=== PATIENT | female | born 1940 | race Caucasian/White ===

== ENCOUNTER → 2019-01-22 | Outpatient (CLI) | payer BC ==
[~2019-01-22] MED LIST: ACET325 PO; ASPI81CH PO; ATOR10 PO; ATOR80 PO; Bactrim 400-801 EACH PO; CARV3.125 PO; CARV6.25 PO; CLOP75 PO; DOCU100 PO; GLIP5 PO; GLIP5ER PO; Glucophage1000 MG PO; LOSA25 PO; LOSA50 PO; Lisinopril2.5 MG PO; METF500 PO; OMEPRAZOLE MAGN20 MG; ONDA4 PO; Omeprazole20 M1 PO; PARO20 PO; PAXIL40 MG PO; Paxil40 MG PO; SPIR25 PO; Senna8.6 MG PO
== END | disposition home or self-care (01) ==
LOC: LAB 16:26 → LAB SHORT 16:26
DX: N89.8 Other specified noninflammatory disorders of vagina (principal)
CPT/HCPCS: 87070; 87205

== ENCOUNTER → 2019-01-29 | Outpatient (CLI) | payer BC ==
[2019-01-29 15:18] LABS: Bilirubin, Urine Neg (Neg); Blood, Urine Neg (Neg); Glucose Qualitative, Urine Neg (Neg); Ketones, Urine Neg (Neg); Leukocyte Esterase, Urine 1+ (Neg); Nitrite, Urine Neg (Neg); Protein, Urine Neg (Neg); Urobilinogen, Urine NORM (Normal)
[2019-01-29 15:28] LABS: Appearance, Urine Hazy (Clear); Color, Urine Yellow (P-Yellow)
[2019-01-29 15:29] LABS: Red Blood Cells, Urine 0-2 /hpf (0-2); Squamous Epithelial Cells Few /hpf (Few)
[2019-01-29 15:30] LABS: Bacteria Few /hpf
== END | disposition home or self-care (01) ==
LOC: LAB SHORT 13:10 → LAB 13:10
PROVIDERS: Internal Medicine
DX: N39.0 Urinary tract infection, site not specified (principal)
CPT/HCPCS: 81001; 87086

== ENCOUNTER 2019-08-06 09:14 | Day surgery (SDC) | payer BC ==
[~2019-08-06 09:14] MED LIST changes: +COLACE CLEAR50 MG PO; +CYAN1000I IM; +Estrace Vagin42.5 GM; +Lipitor80 MG PO; +OMEPRAZOLE20 MG PO; +Senna S Tablet1 EACH PO
--- NOTE | 2019-08-06 10:47 | NUR ---
08/06/19 1047 Edward Cesar REACHED CECUM. COLONOSCOPY INCOMPLETE D/T POOR PREP.
[2019-08-14] MEDS ORDERED: Aspir 8181 MG PO (08:19)
[2019-08-14] MEDS ORDERED: LOSARTAN POTASS25 MG PO (08:20)
[2019-08-14] MEDS ORDERED: GLIP5 PO (08:34)
== END 2019-08-06 11:50 | disposition home or self-care (01) ==
LOC: ORSCSDS 09:14
PROVIDERS: Internal Medicine Gastroenterology
PROC: 0DBL8ZX Excision of Transverse Colon, Via Natural or Artificial Opening Endoscopic, Diagnostic (ICD-10-PCS; principal; 2019-08-06 10:15)
DX: R19.7 Diarrhea, unspecified (principal); R10.32 Left lower quadrant pain; D12.3 Benign neoplasm of transverse colon; K57.30 Diverticulosis of large intestine without perforation or abscess without bleeding; K64.8 Other hemorrhoids; I25.2 Old myocardial infarction; Z79.01 Long term (current) use of anticoagulants; K21.9 Gastro-esophageal reflux disease without esophagitis; E11.9 Type 2 diabetes mellitus without complications; Z79.899 Other long term (current) drug therapy
CPT/HCPCS: 82947; 88305; J2704; J7120

== ENCOUNTER → 2019-08-09 | Outpatient (CLI) | payer BC ==
[~2019-08-09] MED LIST changes: +Aspir 8181 MG PO; +LOSARTAN POTASS25 MG PO
[2019-08-09 15:31] LABS: Appearance, Urine Cloudy (Clear); Bilirubin, Urine Neg (Neg); Blood, Urine 3+ (Neg); Color, Urine Yellow (P-Yellow); Glucose Qualitative, Urine 3+ (Neg); Ketones, Urine Neg (Neg); Leukocyte Esterase, Urine 3+ (Neg); Nitrite, Urine Neg (Neg); Protein, Urine 3+ (Neg); Urobilinogen, Urine NORM (Normal); pH, Urine 6.5 (5.0-8.0)
[2019-08-09 15:44] LABS: Bacteria Many /hpf; Squamous Epithelial Cells Few /hpf (Few); White Blood Cells, Urine TNTC /hpf (0-5)
== END ==
LOC: LAB SHORT 12:15 → OLS 12:15 → EDSTATUS 08-09 10:00 → LAB FUT 08-09 10:00
PROVIDERS: Internal Medicine
DX: N39.0 Urinary tract infection, site not specified (principal)
CPT/HCPCS: 81001; 87077; 87086; 87186

== ENCOUNTER 2019-08-15 00:03 | Day surgery (SDC) | payer BC | END 2019-08-15 23:57 | disposition home or self-care (01) | LOC: ATC 00:03 | DX: N39.0 Urinary tract infection, site not specified (principal); Z88.5 Allergy status to narcotic agent; Z88.8 Allergy status to other drugs, medicaments and biological substances; Z79.02 Long term (current) use of antithrombotics/antiplatelets; Z79.899 Other long term (current) drug therapy | CPT/HCPCS: 96365; J0692 ==

== ENCOUNTER 2019-08-16 00:26 | Day surgery (SDC) | payer BC | END 2019-08-16 16:56 | disposition home or self-care (01) | LOC: ATC 00:26 | DX: N39.0 Urinary tract infection, site not specified (principal); E11.9 Type 2 diabetes mellitus without complications; E78.00 Pure hypercholesterolemia, unspecified; I25.2 Old myocardial infarction; Z79.02 Long term (current) use of antithrombotics/antiplatelets; Z79.899 Other long term (current) drug therapy; Z88.5 Allergy status to narcotic agent; Z88.8 Allergy status to other drugs, medicaments and biological substances | CPT/HCPCS: 96365; J0692 ==

== ENCOUNTER 2019-08-17 07:25 | Day surgery (SDC) | payer BC | END 2019-08-17 16:26 | disposition home or self-care (01) | LOC: ATC 07:25 | DX: N39.0 Urinary tract infection, site not specified (principal); E11.9 Type 2 diabetes mellitus without complications; E78.00 Pure hypercholesterolemia, unspecified; I25.2 Old myocardial infarction; Z88.5 Allergy status to narcotic agent; Z88.8 Allergy status to other drugs, medicaments and biological substances; Z79.02 Long term (current) use of antithrombotics/antiplatelets; Z79.899 Other long term (current) drug therapy | CPT/HCPCS: 96365; J0692 ==

== ENCOUNTER 2019-08-18 00:07 | Day surgery (SDC) | payer BC | END 2019-08-18 16:42 | disposition home or self-care (01) | LOC: ATC 00:07 | DX: N39.0 Urinary tract infection, site not specified (principal); I25.2 Old myocardial infarction; E11.9 Type 2 diabetes mellitus without complications; Z88.5 Allergy status to narcotic agent; Z88.8 Allergy status to other drugs, medicaments and biological substances; Z79.899 Other long term (current) drug therapy; Z79.01 Long term (current) use of anticoagulants; Z79.84 Long term (current) use of oral hypoglycemic drugs | CPT/HCPCS: 96365; J0692 ==

== ENCOUNTER 2019-08-19 00:10 | Day surgery (SDC) | payer BC | END 2019-08-19 22:46 | disposition home or self-care (01) | LOC: ATC 00:10 | DX: N39.0 Urinary tract infection, site not specified (principal); I25.2 Old myocardial infarction; E11.9 Type 2 diabetes mellitus without complications; Z91.14 Patient's other noncompliance with medication regimen; Z88.5 Allergy status to narcotic agent; Z88.8 Allergy status to other drugs, medicaments and biological substances; Z79.899 Other long term (current) drug therapy; Z79.01 Long term (current) use of anticoagulants; Z79.84 Long term (current) use of oral hypoglycemic drugs | CPT/HCPCS: 96365; J0692 ==

== ENCOUNTER → 2019-08-24 | Outpatient (CLI) | payer BC ==
[2019-08-24 11:29] LABS: Source, Urine Clean Catch
[2019-08-24 12:01] LABS: Bilirubin, Urine Neg (Neg); Blood, Urine 4+ (Neg); Glucose Qualitative, Urine Neg (Neg); Ketones, Urine Neg (Neg); Leukocyte Esterase, Urine 1+ (Neg); Nitrite, Urine Neg (Neg); Protein, Urine 2+ (Neg); Urobilinogen, Urine NORM (Normal); pH, Urine 6.5 (5.0-8.0)
[2019-08-24 12:34] LABS: Appearance, Urine Clear (Clear); Color, Urine Yellow (P-Yellow)
[2019-08-24 12:36] LABS: Bacteria Few /hpf; Red Blood Cells, Urine 25-50 /hpf (0-2); Squamous Epithelial Cells Mod /hpf (Few)
== END | disposition home or self-care (01) ==
LOC: LAB SHORT 11:28 → OLS 11:28
PROVIDERS: Internal Medicine
DX: N39.0 Urinary tract infection, site not specified (principal)
CPT/HCPCS: 81001; 87086

== ENCOUNTER 2019-12-03 07:18 | Observation (INO) | payer BC ==
[~2019-12-03] VITALS: Ht 162.6 cm; Wt 60.8 kg
[~2019-12-03 07:18] MED LIST changes: -CYAN1000I IM; +CYAN500 IM
--- NOTE | 2019-12-03 08:17 | NUR ---
History, Chart, Medications and Allergies reviewed before start of procedure. Patient confirms NPO status and agrees with scheduled surgery. Lungs clear T/O to Auscultation. Pre-Op teaching done. Pt verbalizes understanding. Patient reports completing Chlorhexadine shower X2 prior to admission to hospital.
--- NOTE | 2019-12-03 08:43 | NUR ---
PATIENT ON MONITOR DURING PREOP WAITING PERIOD POST DEACTIVATION OF SENSING FOR ICD. NOTE ON CHART TO HAVE RE-INTEROGATED AND TURNED ON IN PACU.
--- NOTE | 2019-12-03 09:04 | NUR ---
MACHINE FASTENER REPORT COMPLETED AT BEDSIDE WITH MAGUE JETER.
--- NOTE | 2019-12-03 15:50 | NUR ---
SHIFT SUMMARY PT A&OX4, VSS, S/P SPIGELIAN HERNIA REPAIR WITH MESH, GAUZE/OPSITE CDI, ABD BINDER ON. PAIN MANAGED WITH 5 MG NORCO AND KPAD FOR COMFORT. DOMONIQUE PO REG DIET, DENIES N&V. AMB WITH SBA FWW TO BSC. VOIDING/ATTENDS ON FOR LEAKAGE. TCDB/I.S. EDU & ENC Q2H; PT DEMONSTRATED. WILL REPORT OFF TO ONCOMING RN.
--- NOTE | 2019-12-04 04:40 | NUR ---
SHIFT SUMMARY POD 1 S/P SPIGELIAN HERNIA REPAIR WITH MESH. ABD DRESSING W/ GAUZE/OPSITE C/D/I WITH NO DRAINAGE NOTED. PT IS A/0X4 WITH SOME FORGETFULLNESS, VSS. AMBULATED TO BATHROOM WITH FWW/GB/SBA SEVERAL TIMES T/O NIGHT, ATTENDS IN PLACE FOR LEAKAGE. PAIN MANAGED WITH 1 PO NORCO, HEAT, AND REPOSITIONING. IS TOLERATING REGULAR DIET, DENIES N/V. REPORTS PASSING FLATUS. CURRENTLY RESTING IN BED WITH CALL LIGHT IN REACH. WILL CONT TO MONITOR AND GIVE REPORT TO ONCOMING RN.
[2019-12-04] MEDS ORDERED: Norco 5-325 Ta1 EACH PO (14:59)
[2019-12-04 16:25] LABS: Source, Urine Clean Catch
[2019-12-04 16:32] LABS: Bilirubin, Urine Neg (Neg); Blood, Urine 2+ (Neg); Glucose Qualitative, Urine Neg (Neg); Ketones, Urine Neg (Neg); Leukocyte Esterase, Urine 3+ (Neg); Nitrite, Urine Neg (Neg); Protein, Urine Neg (Neg); Urobilinogen, Urine NORM (Normal)
--- NOTE | 2019-12-04 16:38 | NUR ---
DISCHARGE UA SENT. DISCUSSED DC INSTRUCTIONS W/ SPOUSE AND PT. ESCORTED OUT VIA W/C. PAIN WELL MANAGED AND SCRIPT SENT WITH SPOUSE.
[2019-12-04 16:41] LABS: Color, Urine Pale Yellow (P-Yellow)
[2019-12-04 16:42] LABS: Appearance, Urine Hazy (Clear)
[2019-12-04 16:44] LABS: Bacteria Mod /hpf; Squamous Epithelial Cells Few /hpf (Few); White Blood Cells, Urine 50-100 /hpf (0-5)
== END 2019-12-04 16:38 | disposition home or self-care (01) ==
LOC: ORSCMMR 07:18 → ORD 07:30 → ORSCMMR 09:00 → SURS 10:49 → ORD 11:15 → SURS 11:26
PROVIDERS: ADMIT Surgery
PROC: 0WUF0JZ Supplement Abdominal Wall with Synthetic Substitute, Open Approach (ICD-10-PCS; principal; 2019-12-03 09:00)
DX: K43.9 Ventral hernia without obstruction or gangrene (principal); I10 Essential (primary) hypertension; E11.9 Type 2 diabetes mellitus without complications; I25.5 Ischemic cardiomyopathy; I25.2 Old myocardial infarction; I25.10 Atherosclerotic heart disease of native coronary artery without angina pectoris; Z79.82 Long term (current) use of aspirin; Z79.84 Long term (current) use of oral hypoglycemic drugs; Z79.899 Other long term (current) drug therapy; Z88.5 Allergy status to narcotic agent; Z95.5 Presence of coronary angioplasty implant and graft
CPT/HCPCS: 81001; 82947; 87086; 96361; 96374; A9270; A9270-GY; C1781; G0378; J0690; J1100; J2405; J2704; J2710; J3010; J7120

== ENCOUNTER → 2020-06-18 | Outpatient (CLI) | payer BC ==
[~2020-06-18] MED LIST changes: +Norco 5-325 Ta1 EACH PO
== END | disposition home or self-care (01) ==
LOC: LAB SHORT 20:08 → LAB 20:08
DX: R30.0 Dysuria (principal)
CPT/HCPCS: 87077; 87086; 87186

== ENCOUNTER 2020-07-11 22:18 | Inpatient (IN) | payer BC, MEDICARE ==
[~2020-07-11] VITALS: Ht 162.6 cm; Wt 60.1 kg
[2020-07-11 22:55] LABS: BASOPHILS ABSOLUTE AUTO 0.06 K/mm3 (0.00-0.23); BASOPHILS PERCENT AUTO 0 % (0-2); EOSINOPHILS ABSOLUTE AUTO 0.43 K/mm3 (0.00-0.68); EOSINOPHILS PERCENT AUTO 3 % (0-6); Hematocrit 34.8 % (33.0-51.0); Hemoglobin 11.3 g/dL (11.5-16.0); IMMATURE GRAN PERCENT AUTO 1 % (0-1); LYMPHOCYTES ABSOLUTE AUTO 2.33 K/mm3 (0.84-5.20); LYMPHOCYTES PERCENT AUTO 15 % (21-46); MONOCYTES PERCENT AUTO 7 % (4-13); Mean Corpuscular HGB 31.6 pg (26.0-34.0); Mean Corpuscular HGB Conc 32.5 g/dL (31.5-36.5); Mean Corpuscular Volume 97 fL (80-100); Mean Platelet Volume 10.8 fL (9.1-12.4); NEUTROPHILS ABSOLUTE AUTO 11.35 K/mm3 (1.96-9.15); NEUTROPHILS PERCENT AUTO 74 % (41-73); Platelet Count 238 K/mm3 (150-400); RDW Coefficient Variation 12.5 % (11.7-14.2); RDW Standard Deviation 44.9 fL (35.1-46.3); Red Blood Cell Count 3.58 M/mm3 (3.80-5.20); White Blood Cell Count 15.37 K/mm3 (4.00-11.30)
[2020-07-11 23:17] LABS: Albumin, Blood 3.6 g/dL (3.4-5.0); Anion Gap 10 mmol/L (6-16); Blood Urea Nitrogen 38 mg/dL (8-24); Bun/Creatinine Ratio 34.5 (12.0-20.0); CO2, Blood 24 mmol/L (21-32); Calcium, Blood 9.4 mg/dL (8.5-10.1); Chloride, Blood 102 mmol/L (98-108); Globulin, Blood 3.6 g/dL (2.2-4.0); Glomerular Filtration Rate 51 (60-); Glucose, Blood 77 mg/dL (70-99); Potassium, Blood 4.6 mmol/L (3.5-5.5); Sodium, Blood 136 mmol/L (136-145); Total Protein, Blood 7.2 g/dL (6.4-8.2); Troponin I <0.015 ng/mL (0.000-0.040)
[2020-07-11 23:18] LABS: Alanine Aminotransfer (ALT/SGP 58 U/L (12-78); Alk Phos 89 U/L (50-136); Aspartate Aminotrans (AST/SGOT 50 U/L (12-37); Bilirubin, Total 0.8 mg/dL (0.1-1.0)
[2020-07-12 01:00] LABS: Source, Urine Clean Catch
[2020-07-12 01:04] LABS: Bilirubin, Urine Neg (Neg); Blood, Urine 5+ (Neg); Color, Urine Yellow (P-Yellow); Glucose Qualitative, Urine Neg (Neg); Ketones, Urine Neg (Neg); Leukocyte Esterase, Urine 1+ (Neg); Nitrite, Urine Neg (Neg); Protein, Urine Neg (Neg); Specific Gravity, Urine 1.015 (1.003-1.022); Urobilinogen, Urine NORM (Normal)
[2020-07-12 01:05] LABS: Appearance, Urine Clear (Clear)
[2020-07-12 01:11] LABS: Bacteria Mod /hpf; Red Blood Cells, Urine 50-100 /hpf (0-2); Squamous Epithelial Cells Few /hpf (Few)
--- NOTE | 2020-07-12 05:26 | NUR ---
REPORT RECEIVED FROM HUSSEIN ZAVALA RN. PT TRANSPORTED TO MEDICAL FLOOR VIA [facility], TRANSFERRED FROM [facility] TO HOSPITAL BED. NO S/S ACUTE DISTRESS NOTED. PT A&O, ANSWERS QUESTIONS APPROPRIATELY. RESPS EVEN AND UNLABORED VSS. PT SITUATED AND ORIENTED TO ROOM/UNIT. IVF ONGOING ORDERED. CALL LIGHT, POSSESSIONS IN REACH, BED IN LOWEST POSITION. REMINDED PT TO CALL PRIOR TO TRANSFERS, INDICATED UNDERSTANDING. WILL CONTINUE TO MONITOR.
[2020-07-12 06:13] LABS: Albumin, Blood 3.1 g/dL (3.4-5.0); Bilirubin, Total 0.8 mg/dL (0.1-1.0); Bun/Creatinine Ratio 34.7 (12.0-20.0); Calcium, Blood 8.4 mg/dL (8.5-10.1); Creatinine, Blood 0.98 mg/dL (0.40-1.00); Globulin, Blood 3.1 g/dL (2.2-4.0); Potassium, Blood 4.2 mmol/L (3.5-5.5); Total Protein, Blood 6.2 g/dL (6.4-8.2)
[2020-07-12 06:34] LABS: BASOPHILS ABSOLUTE AUTO 0.04 K/mm3 (0.00-0.23); BASOPHILS PERCENT AUTO 0 % (0-2); EOSINOPHILS PERCENT AUTO 3 % (0-6); Hematocrit 31.7 % (33.0-51.0); Hemoglobin 10.2 g/dL (11.5-16.0); IMMATURE GRAN ABSOLUTE AUTO 0.04 K/mm3 (0.00-0.10); IMMATURE GRAN PERCENT AUTO 0 % (0-1); LYMPHOCYTES ABSOLUTE AUTO 2.03 K/mm3 (0.84-5.20); LYMPHOCYTES PERCENT AUTO 22 % (21-46); MONOCYTES ABSOLUTE AUTO 0.81 K/mm3 (0.16-1.47); MONOCYTES PERCENT AUTO 9 % (4-13); Mean Corpuscular HGB 31.7 pg (26.0-34.0); Mean Corpuscular HGB Conc 32.2 g/dL (31.5-36.5); Mean Corpuscular Volume 98 fL (80-100); Mean Platelet Volume 10.8 fL (9.1-12.4); NEUTROPHILS ABSOLUTE AUTO 5.94 K/mm3 (1.96-9.15); NEUTROPHILS PERCENT AUTO 65 % (41-73); Platelet Count 186 K/mm3 (150-400); RDW Coefficient Variation 12.6 % (11.7-14.2); RDW Standard Deviation 45.1 fL (35.1-46.3); Red Blood Cell Count 3.22 M/mm3 (3.80-5.20); White Blood Cell Count 9.16 K/mm3 (4.00-11.30)
--- NOTE | 2020-07-12 06:53 | NUR ---
SHIFT SUMMARY PT HAS HAD NO ACUTE CHANGES IN CONDITION SINCE ADMISSION TO FLOOR. UP TO BSC WITH 2 ASSIST. TOLERATED WELL. LACTIC ACID TRENDING DOWN. PT DENIES NEEDS AT THIS TIME. CALL LIGHT, POSSESSIONS IN REACH. IVF INFUSING. BED IN LOWEST POSITION WITH ALARMS ON. WILL CONTINUE TO MONITOR UNTIL DAY RN ASSUMES CARE.
--- NOTE | 2020-07-12 15:27 | NUR ---
TRANSFER TO ICU: PT ARRIVED TO ICU-07 AT 1238 FROM ROOM 337. ON ARRIVAL, SHE IS A&O TO SELF, FAMILY & PLACE. SHE IS A POOR HISTORIAN & FORGETFUL, HER IS AT BEDSIDE & PRIMARILY MANAGES HER CARE. LS ARE CLEAR T/O, PT ON RA W/ O2 SATS > 92%. MONITOR SHOWS SB-SR W/ HR 50-60s. HYPOTENSION IS MAINLY ORTHOSTATIC AT THIS POINT, SBP 100-110s AT REST, DECREASED TO 90s WHEN OOB. PT HAS NO GI COMPLAINTS, IS TOLERATING PO INTAKE WELL. SHE IS VOIDING W/O DIFFICULTY BUT DID HAVE A POST-VOID RESIDUAL OF 439 ML DURING RENAL/ BLADDER US, PER REPORT. THIS HAS BEEN DISCUSSED W/ DR CHAMBERLAIN, ALTHOUGH OFFICIAL REPORT IS NOT YET AVAILABLE. SHE STS THAT ANOTHER POST-VOID RESIDUAL SHOULD BE COMPLETED VIA BLADDER SCAN & THAT IF > 300 ML, A FELDMAN CATHETER SHOULD BE PLACED. SKIN CONDITION OVERALL CDI, PT HAS A SMALL AMNT OF BLANCHABLE REDNESS NOTED TO COCCYX & IS AGREEABLE TO Q2H REPOSITIONING. DR CHAMBERLAIN HAS EVALUATED THE PT & WOULD LIKE HER MEDICAL RECORDS TO BE GOTTEN FROM A PROVIDER, DR ESPERANZA SOL, IN THE [place], TOMORROW AM WHEN PROVIDER OFFICE IS OPEN. THE PT IS AGREEABLE TO THIS. WILL CONTINUE TO MONITOR & UPDATE NEEDED.
[2020-07-12 17:21] LABS: Anion Gap 7 mmol/L (6-16); Blood Urea Nitrogen 22 mg/dL (8-24); CO2, Blood 22 mmol/L (21-32); Calcium, Blood 7.6 mg/dL (8.5-10.1); Chloride, Blood 116 mmol/L (98-108); Creatinine, Blood 0.69 mg/dL (0.40-1.00); Glomerular Filtration Rate >60 (60-); Glucose, Blood 155 mg/dL (70-99); Magnesium, Blood 1.3 mg/dL (1.6-2.4); Phosphorus, Blood 2.3 mg/dL (2.5-4.9); Potassium, Blood 3.7 mmol/L (3.5-5.5); Sodium, Blood 145 mmol/L (136-145); Troponin I <0.015 ng/mL (0.000-0.040)
[2020-07-12 17:21] LABS: Source, Urine Catheter
[2020-07-12 17:25] LABS: Bilirubin, Urine Neg (Neg); Blood, Urine 4+ (Neg); Glucose Qualitative, Urine Neg (Neg); Ketones, Urine Neg (Neg); Leukocyte Esterase, Urine Neg (Neg); Nitrite, Urine Neg (Neg); Protein, Urine Neg (Neg); Urobilinogen, Urine NORM (Normal)
[2020-07-12 17:33] LABS: Appearance, Urine Clear (Clear); Color, Urine Pale Yellow (P-Yellow)
[2020-07-12 17:34] LABS: Bacteria Rare /hpf; Squamous Epithelial Cells Rare /hpf (Few)
--- NOTE | 2020-07-12 18:24 | NUR ---
PT RETURNED TO BED AFTER SUPPER. VSS AND NSR. NS AT 100ML.
--- NOTE | 2020-07-12 19:15 | NUR ---
INITAL SHIFT ASSESSMENT PT IS ALERT AND ORIENTED SITTING UP IN BED WATCHING TV. BEDSIDE REPORT RECIEVED FROM OFF GOING RN. PT DEMONSTRATED USE OF CALL LIGHT WITH THIS RN. PT DENIES ANY CHEST PAIN OR ANY OTHER DISCOMFORT. VITALS ARE STABLE AT THIS TIME. PT HAS NS RUNNING ORDERED. SEE [facility] FOR ALL ADMINISTERED MEDICATIONS. PT HAS ONE PERIPHERAL IV WELL A POWER GLIDE THAT ARE CDI WITH NO S/S OF INFECTION. FELDMAN CATH IN PLACE DRAINING CLEAR YELLOW URINE. PT HAS NO COMPLAINTS OF FELDMAN CATH BOTHERING HER. OFFERED TO REPOSITION HER AT THIS TIME AND SHE STATES SHE IS COMFORTABLE. PT WAS GIVEN FRESH WATER AT THIS TIME. OVERALL ASSESSMENT IS BENIGN. WILL CON'T TO MONITOR AND KEEP PT SAFE T/O REMAINDER OF SHIFT.
--- NOTE | 2020-07-12 22:26 | NUR ---
SHIFT REPORT REPORT GIVEN TO SUPERVISOR SHUTTLE FITTING SANDEEP. PT IS STABLE AT THIS TIME. RESTING WELL WITH EYES CLOSED.
--- NOTE | 2020-07-12 22:31 | NUR ---
ASSUMING CARE- 0 TAKING OVER CARE. REPORT RECEIVED FROM MAGUE ASHFORD. PATIENT IS RESTING IN BED WITH EYES CLOSED.
[2020-07-13 03:49] LABS: BASOPHILS ABSOLUTE AUTO 0.03 K/mm3 (0.00-0.23); BASOPHILS PERCENT AUTO 1 % (0-2); EOSINOPHILS ABSOLUTE AUTO 0.26 K/mm3 (0.00-0.68); EOSINOPHILS PERCENT AUTO 4 % (0-6); Hematocrit 29.4 % (33.0-51.0); Hemoglobin 9.4 g/dL (11.5-16.0); IMMATURE GRAN ABSOLUTE AUTO 0.02 K/mm3 (0.00-0.10); IMMATURE GRAN PERCENT AUTO 0 % (0-1); LYMPHOCYTES ABSOLUTE AUTO 1.73 K/mm3 (0.84-5.20); LYMPHOCYTES PERCENT AUTO 26 % (21-46); MONOCYTES ABSOLUTE AUTO 0.58 K/mm3 (0.16-1.47); MONOCYTES PERCENT AUTO 9 % (4-13); Mean Corpuscular HGB 31.2 pg (26.0-34.0); Mean Corpuscular Volume 98 fL (80-100); Mean Platelet Volume 10.9 fL (9.1-12.4); NEUTROPHILS ABSOLUTE AUTO 3.93 K/mm3 (1.96-9.15); NEUTROPHILS PERCENT AUTO 60 % (41-73); Platelet Count 179 K/mm3 (150-400); RDW Coefficient Variation 12.8 % (11.7-14.2); Red Blood Cell Count 3.01 M/mm3 (3.80-5.20); White Blood Cell Count 6.55 K/mm3 (4.00-11.30)
[2020-07-13 04:04] LABS: Albumin, Blood 2.8 g/dL (3.4-5.0); Anion Gap 7 mmol/L (6-16); Blood Urea Nitrogen 15 mg/dL (8-24); Bun/Creatinine Ratio 18.1 (12.0-20.0); CO2, Blood 23 mmol/L (21-32); Calcium, Blood 8.4 mg/dL (8.5-10.1); Chloride, Blood 111 mmol/L (98-108); Creatinine, Blood 0.83 mg/dL (0.40-1.00); Glomerular Filtration Rate >60 (60-); Glucose, Blood 171 mg/dL (70-99); Potassium, Blood 4.7 mmol/L (3.5-5.5); Sodium, Blood 141 mmol/L (136-145)
[2020-07-13 04:18] LABS: Phosphorus, Blood 5.3 mg/dL (2.5-4.9)
--- NOTE | 2020-07-13 06:37 | NUR ---
END OF SHIFT SUMMARY PATIENT REMAINED UNCHANGED NEUROLOGICALLY THIS SHIFT. SHE WAS PLEASANT AND COOPERATIVE. ALERT AND ORIENTED. FORGETFUL AT TIMES, BUT BASELINE DEMENTIA REPORTED IN THE MEDICAL HX. BLOOD PRESSURE STABLE OVERNIGHT. NSR ON BEDSIDE MACHINE BUNCH MAKER. AFEBRILE. LUNGS CLEAR WITH SOME FINE CRACKLES IN THE BASES. TOLERATING ROOM AIR. TOLERATING DIET WELL. FELDMAN CATHETER IN PLACE WITH ADEQUATE URINE OUTPUT. URINE IS RED TINGED. SKIN IS INTACT. PIV X [address] MIDLINE IN PLACE IN RIGHT UPPER ARM. NS INFUSING AT 100 MLS/HR. POTASSIUM AND MAGNESIUM REPLACED LAST NIGHT.
--- NOTE | 2020-07-13 09:50 | NUR ---
ASSUMED CARE / DR HOLLIDAY: REPORT RECEIVED FROM LUISITO Meyer RN. ASSUMED CARE OF THIS PT AT APPROX 0700. ON ASSESSMENT, THE PT IS AWAKE, A&O. SHE IS FORGETFUL AT TIMES BUT RESPONDS WELL TO REORIENTATION & REMINDERS. VSS. HYPOTENSION IS SOMEWHAT PERSISTANT BUT PT REMAINS ASYMPTOMATIC OF THIS. SBP IS LABILE W/ FLUCTUATIONS BETWEEN 90-110s. LS W/ FINE CRACKLES IN BASES THIS AM, PT DENIES SOB. IVFs D/C'd PER DR HOLLIDAY. SKIN CONDITION OVERALL CDI & MOBILITY IS ENCOURAGED FOR THIS PT. PROVIDER AT BEDSIDE TO EVAL PT. HE STS THAT SHE IS OKAY TO BE TRANSFERRED TO MEDICAL STATUS. IVFs DISCONTINUED NOTED ABOVE. ORDERS PLACED. WILL CONTINUE TO MONITOR & UPDATE NEEDED.
--- NOTE | 2020-07-13 17:26 | NUR ---
Mrs. Uribe is a [place] woman with a life-long justin that sustains her. She feels well-loved and supported by family and tells me that, because of ehr justin, she has no fear of /sickness. She reports to be feeling a bit better and declined fears/concerns. We prayed together for her family at her request. I will remain available.
--- NOTE | 2020-07-13 17:46 | NUR ---
SHIFT SUMMARY: NO ACUTE CHANGES SINCE PRIOR UPDATES. PT REMAINS A&O, PLEASANT & COOPERATIVE. BP REMAINS STABLE, SBP 100s ON AVG, DOWN TO 90s WHEN SLEEPING. PT IS ASYMPTOMATIC OF HYPOTENSION W/ SBP 90s. MONITOR SHOWS SB-SR W/ HR 50-60s. PT ON RA W/ O2 SATS > 92%. NO GI COMPLAINTS, TOLERATING PO INTAKE WELL. FELDMAN PATENT/ DRAINING PINK-TINGED URINE W/ NO FURTHER BLOOD CLOTS NOTED, ADEQUATE OUTPUT THIS SHIFT. SKIN CONDITION OVERALL CDI, PT TOLERATING REPOSITIONING WELL & CALLS FOR ASSISTANCE APPROPRIATELY. WILL CONTINUE TO MONITOR & REPORT OFF TO ONCOMING RN.
--- NOTE | 2020-07-13 18:30 | NUR ---
TRANSFER TO MEDICAL FLOOR: REPORT HAS BEEN GIVEN TO MAGUE GREGG TO ASSUME CARE ON MEDICAL FLOOR. PT HAS BEEN TAKEN VIA WC TO ROOM 334 BY DILCIA ROJO, AT 1830. ALL BELONGINGS & CHART HAVE BEEN TAKEN UP W/ PT AT THAT TIME.
--- NOTE | 2020-07-13 18:36 | NUR ---
PT ARRIVED TO ROOM FROM ICU. SHE WAS ASSISTED TO BED AND HAS CALL LIGHT IN REACH. WILL GIVE REPORT TO ONCOMING NURSE.
--- NOTE | 2020-07-14 05:16 | NUR ---
SHIFT SUMMARY: PT A&O X4. VS STABLE WITH MAP >65. PER TELE, PT SINUS CASEY WITH HR AT 57 WHILE SLEEPING. PT GIVEN SCHEDULED ROCEPHIN AND MEDICATED WITH TYLENOL FOR COMPLAINTS OF MILD HEADACHE. FELDMAN PATENT AND DRAINING CLEAR YELLOW URINE. NO BLOOD CLOTS IN TUBING OR BAG NOTED. NO COMPLAINTS THIS SHIFT. POSSIBLE DISCHARGE HOME TODAY.
[2020-07-14] MEDS ORDERED: CARV3.125 PO (10:42)
[2020-07-14] MEDS ORDERED: SPIR25 PO (10:43)
[2020-07-14] MEDS ORDERED: LOSA25 PO (10:43)
--- NOTE | 2020-07-14 11:06 | NUR ---
PT DCD HOME WITH . ALL MED ORDERS AND FOLLOW [employer] REVIEWED WITH THE PT AND HER WHO VERBALIZED AN UNDERSTANDING AND REPORTED THEY WOULD SCHEDULE THE F/U APPTS. IVS REMOVED WITH NO ISSUE. PT REPORTS THAT SHE IS MISSING A PAIR OF SHOES BUT THE CHARGE NURSE HAS LOOKED FOR THEM IN [place] I FOUND AND CALLED THE OTHER UNITS SHE WAS ON AND WAS NOT ABLE TO LOCATE THEM. FELDMAN EDUCATION DONE WITH THE PT AND THE PER DR MOTT. PT IS GETTING DRESSED AND HEADED DOWN TO HER CAR.
--- NOTE | 2020-07-15 11:29 | NUR ---
07/15/20 1130 SUNIL called and wanted to bring his back to the hospital and have his shivani's ahumada catheter removed.. the ahumada was placed for 440 post void residual and hydronephrosis of her kidney she was instructed to call dr Camarillo in [place] for instructions and follow up. said he would call dr camarillo in [place]
== END 2020-07-14 11:19 | disposition home or self-care (01) | DRG 871 ==
LOC: ER 22:18 → MEDS 22:19 → ICUE 22:19 → ER 07-12 04:52 → MEDS 07-12 05:05 → ICUE 07-12 12:36 → MEDS 07-12 12:36 → ICUE 07-12 17:28 → MEDS 07-12 18:00 → ICUE 07-12 18:00 → MEDS 07-13 18:30 → ICUE 07-13 18:30 → MEDS 07-14 11:19
PROVIDERS: Emergency Medicine; Family Medicine; Internal Medicine Pulmonary Disease; ADMIT Internal Medicine
DX: A41.9 Sepsis, unspecified organism (principal); R65.21 Severe sepsis with septic shock; N17.9 Acute kidney failure, unspecified; E87.2 Acidosis; N13.30 Unspecified hydronephrosis; N39.0 Urinary tract infection, site not specified; I95.9 Hypotension, unspecified; E86.0 Dehydration; R33.9 Retention of urine, unspecified; I25.5 Ischemic cardiomyopathy; I25.10 Atherosclerotic heart disease of native coronary artery without angina pectoris; F32.9 Major depressive disorder, single episode, unspecified; E11.40 Type 2 diabetes mellitus with diabetic neuropathy, unspecified; I25.2 Old myocardial infarction; Z86.73 Personal history of transient ischemic attack (TIA), and cerebral infarction without residual deficits; Z79.82 Long term (current) use of aspirin; Z79.84 Long term (current) use of oral hypoglycemic drugs; Z79.02 Long term (current) use of antithrombotics/antiplatelets
CPT/HCPCS: 36415; 51702; 71046; 76770; 80048; 80053; 80069; 81001; 83605; 83735; 84100; 84484; 85025; 87040; 87086; 93005; 93010; 96361; 96365; 97110; 97112; 97116; 97161; 97165; 97535; 99285-25; A9270; A9270-GY; C1751; J0696; J1650; J3475; J7030; J7050; J7060; P9612

== ENCOUNTER → 2020-09-14 | Outpatient (CLI) | payer BC ==
[2020-09-14 12:14] LABS: Source, Urine Clean Catch
[2020-09-14 13:52] LABS: Appearance, Urine Turbid (Clear); Bilirubin, Urine Neg (Neg); Blood, Urine 2+ (Neg); Color, Urine Yellow (P-Yellow); Glucose Qualitative, Urine Neg (Neg); Ketones, Urine Neg (Neg); Leukocyte Esterase, Urine 3+ (Neg); Nitrite, Urine Neg (Neg); Protein, Urine 3+ (Neg); Specific Gravity, Urine 1.015 (1.003-1.022); Urobilinogen, Urine NORM (Normal)
[2020-09-14 14:15] LABS: White Blood Cells, Urine TNTC /hpf (0-5)
[2020-09-14 14:16] LABS: Bacteria Many /hpf; Red Blood Cells, Urine 0-2 /hpf (0-2); Squamous Epithelial Cells Few /hpf (Few)
== END | disposition home or self-care (01) ==
LOC: LAB SHORT 12:12 → OLS 12:12 → LAB FUT 09-14 11:45
PROVIDERS: Internal Medicine
DX: N39.0 Urinary tract infection, site not specified (principal)
CPT/HCPCS: 81001; 87077; 87086; 87186

== ENCOUNTER → 2021-09-03 | Outpatient (CLI) | payer BC ==
[~2021-09-03] MED LIST changes: -COLACE CLEAR50 MG PO; +Colace100 MG PO; +DOCUZEN 8.6-501 EACH PO; +GLUCOPHAGE1000 M1 PO; +OMEP20ER PO; -Senna S Tablet1 EACH PO; +TAMS.4ER PO
[2021-09-03 15:31] LABS: BASOPHILS ABSOLUTE AUTO 0.02 K/mm3 (0.00-0.23); BASOPHILS PERCENT AUTO 0 % (0-2); EOSINOPHILS ABSOLUTE AUTO 0.07 K/mm3 (0.00-0.68); EOSINOPHILS PERCENT AUTO 1 % (0-6); Hematocrit 33.4 % (33.0-51.0); Hemoglobin 10.9 g/dL (11.5-16.0); IMMATURE GRAN ABSOLUTE AUTO 0.04 K/mm3 (0.00-0.10); IMMATURE GRAN PERCENT AUTO 1 % (0-1); LYMPHOCYTES ABSOLUTE AUTO 0.83 K/mm3 (0.84-5.20); LYMPHOCYTES PERCENT AUTO 11 % (21-46); MONOCYTES ABSOLUTE AUTO 0.46 K/mm3 (0.16-1.47); MONOCYTES PERCENT AUTO 6 % (4-13); Mean Corpuscular HGB 30.7 pg (26.0-34.0); Mean Corpuscular HGB Conc 32.6 g/dL (31.5-36.5); Mean Corpuscular Volume 94 fL (80-100); Mean Platelet Volume 11.1 fL (9.1-12.4); NEUTROPHILS ABSOLUTE AUTO 6.21 K/mm3 (1.96-9.15); NEUTROPHILS PERCENT AUTO 81 % (41-73); Platelet Count 170 K/mm3 (150-400); RDW Coefficient Variation 16.1 % (11.7-14.2); RDW Standard Deviation 54.5 fL (35.1-46.3); Red Blood Cell Count 3.55 M/mm3 (3.80-5.20); White Blood Cell Count 7.63 K/mm3 (4.00-11.30)
[2021-09-03 16:00] LABS: Albumin, Blood 3.5 g/dL (3.4-5.0); Bilirubin, Total 1.5 mg/dL (0.1-1.0); Bun/Creatinine Ratio 28.4 (12.0-20.0); Calcium, Blood 9.6 mg/dL (8.5-10.1); Creatinine, Blood 1.69 mg/dL (0.40-1.00); Globulin, Blood 3.6 g/dL (2.2-4.0); Potassium, Blood 4.7 mmol/L (3.5-5.5); Total Protein, Blood 7.1 g/dL (6.4-8.2)
== END | disposition home or self-care (01) ==
LOC: LAB 15:27 → LAB SHORT 15:27
PROVIDERS: Physician Assistant Surgical
DX: R11.2 Nausea with vomiting, unspecified (principal); R53.83 Other fatigue
CPT/HCPCS: 80053; 84439; 84443; 84481; 85025

== ENCOUNTER 2021-09-05 13:22 | Inpatient (IN) | payer MEDICARE, BC ==
[~2021-09-05] VITALS: Ht 160 cm; Wt 46.7 kg
[~2021-09-05 13:22] MED LIST changes: -GLUCOPHAGE1000 M1 PO; -OMEP20ER PO; -TAMS.4ER PO
[2021-09-05 13:55] LABS: BASOPHILS ABSOLUTE AUTO 0.02 K/mm3 (0.00-0.23); BASOPHILS PERCENT AUTO 0 % (0-2); EOSINOPHILS ABSOLUTE AUTO 0.05 K/mm3 (0.00-0.68); EOSINOPHILS PERCENT AUTO 1 % (0-6); Hemoglobin 11.1 g/dL (11.5-16.0); IMMATURE GRAN ABSOLUTE AUTO 0.07 K/mm3 (0.00-0.10); IMMATURE GRAN PERCENT AUTO 1 % (0-1); LYMPHOCYTES ABSOLUTE AUTO 1.73 K/mm3 (0.84-5.20); LYMPHOCYTES PERCENT AUTO 19 % (21-46); MONOCYTES PERCENT AUTO 11 % (4-13); Mean Corpuscular HGB 31.1 pg (26.0-34.0); Mean Corpuscular HGB Conc 32.6 g/dL (31.5-36.5); Mean Corpuscular Volume 95 fL (80-100); Mean Platelet Volume 11.6 fL (9.1-12.4); NEUTROPHILS ABSOLUTE AUTO 6.43 K/mm3 (1.96-9.15); NEUTROPHILS PERCENT AUTO 69 % (41-73); NRBC ABSOLUTE 0.04 K/mm3 (0.00-0.02); NRBC Auto 0.4 /100 WBC (0.0-0.2); Platelet Count 130 K/mm3 (150-400); RDW Standard Deviation 56.2 fL (35.1-46.3); Red Blood Cell Count 3.57 M/mm3 (3.80-5.20)
[2021-09-05 14:06] LABS: Source, Urine Catheter
[2021-09-05 14:19] LABS: Appearance, Urine Hazy (Clear); Bilirubin, Urine Neg (Neg); Blood, Urine 4+ (Neg); Color, Urine Yellow (P-Yellow); Glucose Qualitative, Urine Neg (Neg); Ketones, Urine 1+ (Neg); Leukocyte Esterase, Urine 3+ (Neg); Nitrite, Urine Neg (Neg); Protein, Urine 3+ (Neg); Urobilinogen, Urine 1+ (Normal)
[2021-09-05 14:22] LABS: Bacteria Many /hpf; Squamous Epithelial Cells Rare /hpf (Few); White Blood Cells, Urine 50-100 /hpf (0-5)
[2021-09-05 14:27] LABS: Albumin/Globulin Ratio 0.8 (0.8-1.8); Bilirubin, Total 1.9 mg/dL (0.1-1.0); Bun/Creatinine Ratio 35.7 (12.0-20.0); Calcium, Blood 9.1 mg/dL (8.5-10.1); Creatinine, Blood 1.57 mg/dL (0.40-1.00); Globulin, Blood 3.6 g/dL (2.2-4.0); Potassium, Blood 5.1 mmol/L (3.5-5.5); Total Protein, Blood 6.6 g/dL (6.4-8.2)
[2021-09-05 16:54] LABS: International Normalized Ratio 1.95; Prothrombin Time Results 19.6 Sec (9.7-11.5)
[2021-09-05 18:46] LABS: Acetaminophen, Random 10.4 ug/mL (10.0-30.0); Salicylate <1.7 mg/dL (2.8-20.0)
--- NOTE | 2021-09-06 04:28 | NUR ---
SUMMARY PT ARRIVED TO FLOOR IN NO DISTRESS. DR FLORENCE CALLED AND HE ORDERED IV FLUIDS AND TO ASSESS FOR OVERLOAD. PT HAS BEEN UNABLE TO VOID BUT A SCANT AMOUNT. PT BLADDER SCANNED AND SHOWED ONLY 107 ML. PT REPORTS PRIOR HX OF NEEDING SELF CATH IN THE PAST. PT DENIES SOB OR PAIN. PT REPORTS FEELING WEAK. PT ON TELE SINUS @ 80 PER TECH. PT CURRENTLY SLEEPING AND BREATHING EASY. CALL LIGHT IN REACH AND BED ALARM ON.
[2021-09-06 06:15] LABS: Troponin I 0.087 ng/mL (0.000-0.040); Vancomycin, Random 10.7 ug/mL
--- NOTE | 2021-09-06 11:42 | NUR ---
Echocardiogram completed.
[2021-09-06 15:16] LABS: BASOPHILS ABSOLUTE AUTO 0.02 K/mm3 (0.00-0.23); BASOPHILS PERCENT AUTO 0 % (0-2); EOSINOPHILS ABSOLUTE AUTO 0.02 K/mm3 (0.00-0.68); EOSINOPHILS PERCENT AUTO 0 % (0-6); Hematocrit 31.4 % (33.0-51.0); IMMATURE GRAN ABSOLUTE AUTO 0.14 K/mm3 (0.00-0.10); IMMATURE GRAN PERCENT AUTO 1 % (0-1); LYMPHOCYTES ABSOLUTE AUTO 1.08 K/mm3 (0.84-5.20); LYMPHOCYTES PERCENT AUTO 10 % (21-46); MONOCYTES ABSOLUTE AUTO 1.04 K/mm3 (0.16-1.47); MONOCYTES PERCENT AUTO 10 % (4-13); Mean Corpuscular HGB 30.6 pg (26.0-34.0); Mean Corpuscular HGB Conc 31.8 g/dL (31.5-36.5); Mean Corpuscular Volume 96 fL (80-100); Mean Platelet Volume 12.2 fL (9.1-12.4); NEUTROPHILS PERCENT AUTO 79 % (41-73); NRBC ABSOLUTE 0.04 K/mm3 (0.00-0.02); NRBC Auto 0.4 /100 WBC (0.0-0.2); Platelet Count 73 K/mm3 (150-400); RDW Coefficient Variation 16.2 % (11.7-14.2); RDW Standard Deviation 56.5 fL (35.1-46.3); Red Blood Cell Count 3.27 M/mm3 (3.80-5.20)
[2021-09-06 16:07] LABS: Albumin, Blood 2.7 g/dL (3.4-5.0); Albumin/Globulin Ratio 0.8 (0.8-1.8); Bun/Creatinine Ratio 36.6 (12.0-20.0); Calcium, Blood 8.5 mg/dL (8.5-10.1); Creatinine, Blood 1.53 mg/dL (0.40-1.00); Globulin, Blood 3.3 g/dL (2.2-4.0); Potassium, Blood 4.9 mmol/L (3.5-5.5)
--- NOTE | 2021-09-06 17:03 | NUR ---
Alert and oriented x3 , able to make needs known. Denies any pain. Blood glucose was 44 , destrose 50% 25 ml IV was given once and would recheck. Lactic was 3.9 trended down from 4.2. Continue on NS infusing at 150 ml/hr for hydration. Continue on IV ceftriaxone for UTI. Vital signs are stable. On tele monitor, normal sinus rythm . One person assist with ADLS. Used bedside commode for voiding. Continue to monitor.
--- NOTE | 2021-09-06 18:02 | NUR ---
SHIFT SUMMARY PT IS UP IN ROOM ON RM AIR. SHE HAD CBG OF 44, WAS D50, IT VIRAJ TO 48, MORE D50 AND DEXTROSE AND NS BAG AND SHE IS AT 72. PT ENCOURAGED TO EAT AND DRINK GLUCERNA. WILL CONTINUE TO MONITOR.
[2021-09-06 19:11] LABS: International Normalized Ratio 2.78; Prothrombin Time Results 27.3 Sec (9.7-11.5)
[2021-09-06 20:05] LABS: Bilirubin, Direct 1.8 mg/dL (0.0-0.3); Bilirubin, Indirect 1.3 mg/dL (0.1-0.7); Bilirubin, Total 3.1 mg/dL (0.1-1.0)
--- NOTE | 2021-09-07 04:53 | NUR ---
SHIFT SUMMARY PT RESTING ON BED. PT NOT FEELING GOOD. MD CALLED TO REPORT LACTIC ACID VALUE, LOW BLOOD PRESSURE. BOLUS OF NS GIVEN TO RESTORE BLPPD PRESSURE VALUE. PT FEELING NAUSEATED. ZOFRAN GIVEN
--- NOTE | 2021-09-07 06:35 | NUR ---
BLADDER SCAN 134 ML
[2021-09-07 08:10] LABS: HBSAG SCREEN Negative (Negative); HEP A AB, IGM Negative (Negative); HEP B CORE AB, IGM Negative (Negative); HEP C VIRUS AB 0.1 (0.0-0.9)
[2021-09-07 11:18] LABS: SARS-Cov-2 (COVID-19) PCR, MMC NEGATIVE (NEGATIVE)
[2021-09-07 11:29] LABS: Acetaminophen, Random <2.0 ug/mL (10.0-30.0)
[2021-09-07 12:01] LABS: Alanine Aminotransfer (ALT/SGP 2604 U/L (12-78); Albumin, Blood 2.2 g/dL (3.4-5.0); Albumin/Globulin Ratio 0.6 (0.8-1.8); Alk Phos 301 U/L (50-136); Anion Gap 15 mmol/L (6-16); Aspartate Aminotrans (AST/SGOT 3742 U/L (12-37); Bilirubin, Total 3.2 mg/dL (0.1-1.0); Blood Urea Nitrogen 60 mg/dL (8-24); Bun/Creatinine Ratio 36.1 (12.0-20.0); CO2, Blood 7 mmol/L (21-32); Chloride, Blood 110 mmol/L (98-108); Creatinine, Blood 1.66 mg/dL (0.40-1.00); Globulin, Blood 3.6 g/dL (2.2-4.0); Glomerular Filtration Rate 30 (60-); Glucose, Blood 225 mg/dL (70-99); Potassium, Blood 5.9 mmol/L (3.5-5.5); Sodium, Blood 132 mmol/L (136-145); Total Protein, Blood 5.8 g/dL (6.4-8.2)
[2021-09-07 12:40] LABS: Bicarbonate Venous 11.7 mmol/L (24.0-30.0); PCO2 Venous 34.4 mmHg (38-42); pH Blood Venous 7.12 (7.34-7.37)
[2021-09-07 14:58] LABS: BASOPHILS ABSOLUTE AUTO 0.03 K/mm3 (0.00-0.23); BASOPHILS PERCENT AUTO 0 % (0-2); EOSINOPHILS ABSOLUTE AUTO 0.01 K/mm3 (0.00-0.68); EOSINOPHILS PERCENT AUTO 0 % (0-6); Hematocrit 30.5 % (33.0-51.0); Hemoglobin 9.6 g/dL (11.5-16.0); IMMATURE GRAN PERCENT AUTO 2 % (0-1); LYMPHOCYTES ABSOLUTE AUTO 1.07 K/mm3 (0.84-5.20); LYMPHOCYTES PERCENT AUTO 8 % (21-46); MONOCYTES ABSOLUTE AUTO 1.29 K/mm3 (0.16-1.47); MONOCYTES PERCENT AUTO 10 % (4-13); Mean Corpuscular HGB Conc 31.5 g/dL (31.5-36.5); Mean Corpuscular Volume 98 fL (80-100); NEUTROPHILS PERCENT AUTO 80 % (41-73); NRBC ABSOLUTE 0.08 K/mm3 (0.00-0.02); NRBC Auto 0.6 /100 WBC (0.0-0.2); RDW Coefficient Variation 16.1 % (11.7-14.2); RDW Standard Deviation 58.2 fL (35.1-46.3)
[2021-09-07 14:59] LABS: Mean Platelet Volume 13.1 fL (9.1-12.4)
[2021-09-07 15:03] LABS: Platelet Count 36 K/mm3 (150-400)
[2021-09-07 15:43] LABS: Albumin, Blood 2.6 g/dL (3.4-5.0); Albumin/Globulin Ratio 0.8 (0.8-1.8); Bun/Creatinine Ratio 32.6 (12.0-20.0); Calcium, Blood 8.3 mg/dL (8.5-10.1); Creatinine, Blood 1.87 mg/dL (0.40-1.00); Globulin, Blood 3.1 g/dL (2.2-4.0); Potassium, Blood 5.3 mmol/L (3.5-5.5); Total Protein, Blood 5.7 g/dL (6.4-8.2)
--- NOTE | 2021-09-07 16:25 | NUR ---
Met with phsycian and pt to review pt decline and status. pt frail and very pale. Sleeping and minimally responsive most of the time. Pt physician has had crucial discussions with the patients today. He came in very fatigued and looks distrught. We had a careful discussion of possible plans of care for his . We discussed comfort care , hospice and code staus. pt agreed that cpr would not be good. he also understood she was to sick to participate in the conversation. He made her DNR. His daughter are coming this afternoon and he will discuss comfort care with them. He is fearfull of taking her home on hospice. She may be to fragil and sick to tolerate transfer. Will continue tofollow.
[2021-09-07 17:25] LABS: Source, Urine Catheter
[2021-09-07 17:30] LABS: Appearance, Urine Hazy (Clear); Blood, Urine 3+ (Neg); Color, Urine Amber (P-Yellow); Glucose Qualitative, Urine Neg (Neg); Ketones, Urine 1+ (Neg); Leukocyte Esterase, Urine 3+ (Neg); Nitrite, Urine Neg (Neg); Protein, Urine 3+ (Neg); Specific Gravity, Urine 1.025 (1.003-1.022); Urobilinogen, Urine NORM (Normal)
[2021-09-07 18:11] LABS: Bilirubin, Urine 1+ (Neg)
[2021-09-07 18:26] LABS: White Blood Cells, Urine TNTC /hpf (0-5)
[2021-09-07 18:28] LABS: Bacteria Many /hpf; Renal Epithelial Few /hpf (0-Rare); Squamous Epithelial Cells Few /hpf (Few)
--- NOTE | 2021-09-07 18:35 | NUR ---
SHIFT SUMMARY: PT A/O X 3 TWO PERSON MAX ASSIST TO BSC. PT WAS UNABLE TO URINATE BUT HAD URGE TO. SHE WAS UP TWO TIMES TO BSC BUT WAS UNABLE TO PRODUCE URINE. FELDMAN CATH PLACED DUE TO DIFFICULTY URINATING WITH URINE OUTPUT OF 300 TEA COLORED. PT HAS BEEN LETHARGIC AND WEAK T/O THE DAY. VITALS REMAIN LOW. PT HAS BEEN PLACED ON COMFORT CARE. FAMILY IN ROOM WITH PT AT END OF SHIFT. PT SHOWS NO S/S OF PAIN/NAUSEA/SOB.
[2021-09-08] MEDS ORDERED: TAMS.4ER PO (02:49)
[2021-09-08] MEDS ORDERED: OMEP20ER PO (02:52)
[2021-09-08] MEDS ORDERED: GLUCOPHAGE1000 M1 PO (02:54)
--- NOTE | 2021-09-08 03:56 | NUR ---
SHIFT SUMMARY ADMITTED FOR RENAL/HEART FAILURE. DNR CODE. COMFORT CARE. FAMILY IN ROOM. FELDMAN CATHETER IN PLACE. COMFORT CARE CART IN ROOM FOR FAMILY. I DID MEDICATE HER 1 X FOR PAIN. SHE TOLERATED THIS WELL AND WAS ABLE TO REST. IV FLUIDS INFUSING. Q6 CHEMSTICKS.
--- NOTE | 2021-09-08 07:55 | NUR ---
FELDMAN DRAINING YELLOW URINE TO GRAVITY. APPEARS COMFORTABLE. REPOSITINED. BRIEFS CHECKED. DAUGHTER IN ROOM. COMFORT CARE CART UPDATED
--- NOTE | 2021-09-08 10:09 | NUR ---
COMFORT CARE VISIT - Family at bedside, , estela and another estela arrived as I was leaving. Case conferenced with pt's RN prior to my visit. Pt asleep on arrival. Resp rate 20, even, sl labored and some loose airway secretions barely audible. Pt showing some nonverbal indicators of mild pain, scowling and grimacing. No moaning noted with change of position and checking of attends. Once pt was awake she denies pain. S/s of dying process and pain disussed with family with request to report nonverbal indicators of pain or anxiety if noted. Estela is appropriately tearful at bedside. and estela both calm and state they have everything in the room they need. They report that they feel pt's s/s are well managed at this time. They were instructed on how to call staff with call light. Provided them with oral care sponges. GUN SEALING MACHINE OPERATOR brought in suction swab set up for staff use prn. Discussed medications available for pain, air hunger, secretions, anxiety, fever and nausea with family also. Pal Care will remain available for support to pt, family and staff. Daily visits planned, more frequent if needed/indicated.
--- NOTE | 2021-09-08 16:01 | NUR ---
TURNED Q 2 HOURS. PATIENT HAS DENIED ANY PAIN WITH RELATIVES STATING THEY HAVE ALSO ASKED HER IF SHE WANTS ANYTHING FOR PAIN AND HAS DENIED TO THEM. RELATIVES REFUSE ORAL CARE FOR PATIENT. IV SALINE LOCKED. NOT RESPONSIVE IN A.M. RELATIVES AT BEDSIDE .BONILLA
--- NOTE | 2021-09-09 03:51 | NUR ---
SHIFT SUMMARY ADMITTED FOR DECOMPENSATED RENAL, LIVER, & HEART FAILURE. DNR CODE. COMFORT CARE. FELDMAN CATHETER IN PLACE. FAMILY IN ROOM. FAMILY DENIES S/SX OF PAIN OR DISCOMFORT. NO S/SX NOTED. SHE APPEARS TO BE COMFORTABLE. SHE RESTED THROUGHOUT SHIFT.
--- NOTE | 2021-09-09 14:31 | NUR ---
Comfort care visit and case conf with pt's RN on current Rxs, family input and requests. Bedside visit made. Increased work of breathing noted, some furrowing of brow and moaning noted with exhale. Family reports hiccoughs earlier that have resolved. They voiced concern that MS has caused nausea in the past and request Roxanol be d/c'd and another analgesic used. t/c to Dr with report and new orders entered. RN present and aware. Checked back later and RN states that family report that oxycodone soln was effective in treating pt's discomfort and air hunger. Talked with mynor outside of room to answer her questions re: home of choice. They have had multple losses of family members recently. Support and listenening provided. Family will let RN know of mortuary of choice when known. S/s of dying process discussed in room with pt's and mynor. They are appreciative of the care being provided to Helen.
--- NOTE | 2021-09-09 17:21 | NUR ---
PATIENT IS SLEEPING. SHE DOES NOT WAKE TO VERBAL STIMULI. FAMILY IS AT THE BEDSIDE. MEDICATED FOR PAIN PER EMAR. FRANCIA IS IN PLACE. PALLIATIVE CARE ASSESSED THE PATIENT AND SPOKE WITH THE FAMILY TODAY. PAIN MEDICATION WAS CHANGED. WILL CONTINUE TO MONITOR
--- NOTE | 2021-09-10 01:17 | NUR ---
PATIENT WAS KEPT COMFORTABLE THROUGH THE SHIFT SO FAR, WAS GIVEN HER PAIN MED, AND MEDICATION FOR EXCESS SECRETION.HER FAMILY AT THE BEDSIDE. PATIENT FAMILY CALLED THAT SHE WAS UNRESPONSIVE AND WE WENT IN TO CHECK, NO PULSE AN AUSCULTATION AND NO RESPIRATORY EFFORT. 2 NURSES ASSESSED AND COMFIRMED HER AT 0106. FAMILY STILL AT BEDSIDE AT THIS TIME, PAPER WORK STARTED.
== END 2021-09-10 01:06 | DRG 871 ==
LOC: ER 13:22 → ERHOLD 16:41 → MEDS 16:41
PROVIDERS: Emergency Medicine; Family Medicine; Pharmacist; Student in an Organized Health Care Education/Training Program; ADMIT Internal Medicine
PROC: 4B02XTZ Measurement of Cardiac Defibrillator, External Approach (ICD-10-PCS; principal; 2021-09-07)
DX: A41.9 Sepsis, unspecified organism (principal); I50.23 Acute on chronic systolic (congestive) heart failure; K72.00 Acute and subacute hepatic failure without coma; Z66 Do not resuscitate; Z51.5 Encounter for palliative care; N39.0 Urinary tract infection, site not specified; N17.9 Acute kidney failure, unspecified; E87.2 Acidosis; I13.0 Hypertensive heart and chronic kidney disease with heart failure and stage 1 through stage 4 chronic kidney disease, or unspecified chronic kidney disease; G93.40 Encephalopathy, unspecified; Z20.822 Contact with and (suspected) exposure to COVID-19; I95.9 Hypotension, unspecified; R65.20 Severe sepsis without septic shock; K72.90 Hepatic failure, unspecified without coma; I25.10 Atherosclerotic heart disease of native coronary artery without angina pectoris; I25.5 Ischemic cardiomyopathy; D63.1 Anemia in chronic kidney disease; N18.30 Chronic kidney disease, stage 3 unspecified; E78.5 Hyperlipidemia, unspecified; Z88.5 Allergy status to narcotic agent; Z96.652 Presence of left artificial knee joint; Z88.8 Allergy status to other drugs, medicaments and biological substances; Z79.02 Long term (current) use of antithrombotics/antiplatelets; Z79.82 Long term (current) use of aspirin; Z95.810 Presence of automatic (implantable) cardiac defibrillator; Z79.899 Other long term (current) drug therapy; I25.2 Old myocardial infarction; Z98.890 Other specified postprocedural states; Z95.5 Presence of coronary angioplasty implant and graft; Z90.49 Acquired absence of other specified parts of digestive tract
CPT/HCPCS: 36415; 74176; 80053; 80074; 80202; 81001; 82140; 82247; 82248; 82803; 82947; 83516; 83605; 83615; 83735; 83880; 84484; 85025; 85610; 85730; 87040; 87086; 93005; 93010; 93282; 93975; 96365; 96375; 97110; 97162; 97530; 99285-25; A9270; C8929; G0480; J0696; J1644; J1650; J1940; J2405; J2543; J3370; J3475; J7030; J7040; J7042; J7050; J7120; Q9957; U0004